=== PATIENT | female | born 1980 ===

== ENCOUNTER 2024-05-20 20:27 | Emergency (ER) | payer BC, OTHER ==
[~2024-05-20] VITALS: Ht 154.9 cm; Wt 71.2 kg
[2024-05-20 20:29] VITALS: TEMP 98.2
--- NOTE | 2024-05-20 21:04 | HMCIMG ---
Exam Type: TOE(S) 2+VWS LT Clinical Information: INJURY Comparison: None Findings: The bone examination is unremarkable. No fractures or dislocations are seen. No radiopaque foreign bodies are noted. Soft tissues are preserved. IMPRESSION: Normal examination.
[2024-05-20] MEDS: ibuPROFEN 600 MG TABLET PO ONE (21:18)
--- NOTE | 2024-05-20 21:49 | ERN ---
ED Note History of Present Illness Stated Complaint: C/O PAIN WITH BRUISING TO LEFT LITTLE TOE Chief Complaint: Toe Pain/Injury Time Seen by MD: 20:31 Time Seen by Midlevel: 20:31 Dictation: The patient is a 44-year-old female with past medical history of diabetes, hypertension who presents to the emergency department with complaints of left 5th digit pain and bruising onset this morning after she accidentally hit it against a croc shoe. No other injuries reported. Allergies: Coded Allergies: No Known Allergies (Unverified Allergy, Unknown, 05/18/24) Past Medical History Past Medical History: Diabetes-Type II, Hypertension Surgical History: Hysterectomy, Cholecystectomy, Other Surgical History Other: GASTRIC SLEEVE RN Note Reviewed/Agreed w/PFSH: Yes Review of System Dictation Constitutional: Negative for fever,chills, and weight loss Eyes: Negative for injury, pain,redness, and discharge ENT: Negative for injury,pain or swelling Cardiovascular: Negative for chest pain, palpitations, and edema Respiratory: Negative for shortness of breath, cough, and wheezing, Abdomen/GI: Negative for abdominal pain, nausea, vomiting, diarrhea, and constipation Back: Negative for injury and pain : Negative for injury, bleeding and discharge MS/Extremity: Positive for left 5th toe pain, injury Skin: Negative for rash, and discoloration Neuro: Negative for headache, weakness, numbness, tingling, and seizure Psych: Negative for suicide ideation, homicidal ideation, and hallucinations Initial Vital Sign VS Vital Signs Date Time Temp Pulse Resp B/P (MAP) Pulse Ox O2 Delivery O2 Flow Rate FiO2 05/20/24 20:29 98.2 71 18 122/83 99 Room Air Physical Exam Dictation Vital Signs reviewed General Appearance: Alert, oriented x 3, no acute distress, well developed, nourished. Head and Face: non-traumatic. Eyes: PERRL, pink conjunctivas, eyelid no trauma, anterior chamber with arcus senilis. Ears: Pinnas intact and no signs of trauma or erythema ear canals clear and no discharge TM no erythema Nose: No discharge, no bleeding. Oropharynx: Mouth normal, tongue pink. pharynx clear,no erythema, tonsils no exudates, no abscesses noted, mucous membrane moist Neck: Supple, non-tender, no thyromegaly, no masses, no JVD, no bruits Breast:Deferred Chest:No tenderness, no crepitus, no paradoxical movement, no retractions Lungs:Clear, well-ventilated, symmetric, no rales, no wheezing, no rhonchi, no stridor, good breath sounds bilaterally Heart: Regular rate, regular rhythm, no murmur, no gallops Vascular: no peripheral edema, Abdomen: Soft, positive bowel sounds, nondistended, no guarding, nontender, no rebound, no masses no hepatomegaly, no splenomegaly, no Berumen's sign, no hernias. Rectal: Deferred Genital: Deferred Neurological: Normal speech, motor function intact, sensory function intact Musculoskeletal: Neck nontender, full range of motion, back nontender, full range of motion, Extremities: nontender, full range of motion , 5th digit on left foot with bruising, no deformities, cap refill less than 2 seconds Skin: Color pink, dry, no turgor, no rash, no lacerations, no abrasions, no contusions. Lymphatic: Deferred Results (Laboratory/Radiology) Laboratory/Radiology REASON: INJURY ORDERING PHYSICIAN: ROMINA MABRY DO PROCEDURE: TOES LT - TOE(S) 2+VWS LT Exam Type: TOE(S) 2+VWS LT Clinical Information: INJURY Comparison: None Findings: The bone examination is unremarkable. No fractures or dislocations are seen. No radiopaque foreign bodies are noted. Soft tissues are preserved. IMPRESSION: Normal examination. Labs Reviewed?: Yes ED Course ED Course Orders Procedure Category Date Status Time Toe(S) 2+Vws Lt RAD 05/20/24 Resulted 20:37 Ibuprofen 600 Mg PHA 05/20/24 Complete Tablet (Motrin) 21:30 Current Medications Medications (Trade) Dose Ordered Sig/Peter Route PRN Reason Start Time Stop Time Status Last Admin Dose Admin Ibuprofen (moTRIN) 600 mg ONCE ONCE PO 05/20/24 21:30 05/20/24 21:31 DC 05/20/24 21:18 Vital Signs Date Time Temp Pulse Resp B/P (MAP) Pulse Ox O2 Delivery O2 Flow Rate FiO2 05/20/24 20:29 98.2 71 18 122/83 99 Room Air Medical Decision Making MDM The patient is a 44-year-old female with past medical history of diabetes, hypertension who presents to the emergency department with complaints of left 5th digit pain and bruising onset this morning after she accidentally hit it against a croc shoe. No other injuries reported. X-ray showed no acute fractures or dislocation. Patient in no acute distress will be discharged to follow up with PCP. Differential diagnosis: Toe contusion, toe fracture, toe dislocation Need for hospitalization: Patient does not meet criteria for hospitalization. There are no social concerns with this patient. DX & DISP Disposition: Discharge Departure Impression: Primary Impression: Contusion of fifth toe of left foot Condition: Stable Additional Instructions: Please follow up with primary doctor in 1-2 days. FOLLOW-UP WITH PRIMARY CARE PROVIDER IN 1 TO 2 DAYS. TAKE MEDICATIONS DIRECTED HERE IN THE EMERGENCY ROOM. OKAY TO CONTINUE HOME MEDICATIONS UNLESS OTHERWISE DISCUSSED DURING YOUR VISIT IN THE EMERGENCY ROOM TODAY. RETURN TO YOUR NEAREST EMERGENCY ROOM IF SYMPTOMS WORSEN OR IF THERE IS NO IMPROVEMENT. CALL 911 IF YOU NEED IMMEDIATE ASSISTANCE. TAKE TYLENOL OR MOTRIN [id number] NEEDED AND IF NO CONTRAINDICATIONS ARE PRESENT. INCREASE ORAL HYDRATION. A WOUND CULTURE OR URINE CULTURE WAS ORDERED HERE IN THE EMERGENCY ROOM DEPARTMENT PLEASE FOLLOW-UP WITH PRIMARY CARE PROVIDER AND ADVISE THEM TO GET REPEAT PORTS FROM OUR FACILITY. IF YOU HAD ANY JAMIR WRAP/SPLINTS THAT WERE APPLIED HERE, PLEASE DO NOT REMOVE THEM UNTIL YOU SEE YOUR PRIMARY CARE OR SPECIALTY. Referrals: ROSITA GARCES MD (PCP) Time of Disposition: 21:49 I have reviewed the case, and I agree with, Diagnosis and Plan MARY LOU GONZALEZ May 20, 2024 21:49
[2024-05-20 22:09] VITALS: BP 122/69; PULSE 84; RESP 18; O2SAT 98
== END 2024-05-20 22:09 | disposition home or self-care (01) ==
LOC: EDH 20:27
DX: S90.32XA Contusion of left foot, initial encounter (principal); E11.9 Type 2 diabetes mellitus without complications; I10 Essential (primary) hypertension; Z90.49 Acquired absence of other specified parts of digestive tract; Z90.710 Acquired absence of both cervix and uterus; Z98.890 Other specified postprocedural states; W22.8XXA Striking against or struck by other objects, initial encounter; Y93.89 Activity, other specified; Y92.89 Other specified places as the place of occurrence of the external cause; Y99.8 Other external cause status
CPT/HCPCS: 73660; 99283